=== PATIENT | male | born 1955 | race Caucasian/White ===

== ENCOUNTER 2018-01-06 17:44 | Emergency (ER) | payer BC ==
[2018-01-06] MEDS ORDERED: FENTANYL CITRATE INJ/PF 100 MCG/2 ML AMPUL IV ONE (18:26)
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
[2018-01-06] MEDS ORDERED: NORMAL SALINE 1000 ML 1,000 ML IV ONE (19:16)
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
[2018-01-06 19:50] LABS: ABSOLUTE BASOPHILS # (AUTO) 0.1 10^3/uL (0.0-0.2); ABSOLUTE EOSINOPHILS # (AUTO) 0.1 10^3/uL (0.0-0.6); ABSOLUTE LYMPHOCYTES (AUTO) 1.1 10^3/uL (0.5-4.7); ABSOLUTE NEUT (AUTO) 18.4 10^3/uL (1.7-8.2); BASOPHILS % (AUTO) 0.4 % (0-2); EOSINOPHILS % (AUTO) 0.6 % (0-6); HEMATOCRIT 40.7 % (37.9-51.0); HEMOGLOBIN 13.8 g/dL (13.5-17.0); LYMPHOCYTES % (AUTO) 5.5 % (13-45); MEAN CORPUSCULAR HEMOGLOBIN 31.7 pg (27.0-33.4); MEAN CORPUSCULAR HGB CONC 33.8 g/dL (32.0-36.0); MEAN CORPUSCULAR VOLUME 94 fl (80-97); MONOCYTES % (AUTO) 4.8 % (3-13); PLATELET COUNT 169 10^3/uL (150-450); RED BLOOD COUNT 4.34 10^6/uL (4.35-5.55); RED CELL DISTRIBUTION WIDTH 12.8 % (11.5-14.0); SEGMENTED NEUTROPHILS % (AUTO) 88.7 % (42-78); TOTAL CELLS COUNTED % (AUTO) 100 %; WHITE BLOOD COUNT 20.8 10^3/uL (4.0-10.5)
[2018-01-06 20:04] VITALS: BP 106/92
[2018-01-06 20:04] LABS: ANION GAP 13 (5-19); BLOOD UREA NITROGEN 16 mg/dL (7-20); CALCIUM 9.3 mg/dL (8.4-10.2); CARBON DIOXIDE 26 mmol/L (22-30); CHLORIDE 100 mmol/L (98-107); GLUCOSE 122 mg/dL (75-110); POTASSIUM 4.2 mmol/L (3.6-5.0); SODIUM 138.5 mmol/L (137-145)
== END 2018-01-06 20:15 | disposition short-term general hospital (02) ==
LOC: ER 17:44
DX: S32.811A Multiple fractures of pelvis with unstable disruption of pelvic ring, initial encounter for closed fracture (principal); W23.0XXA Caught, crushed, jammed, or pinched between moving objects, initial encounter; Y93.89 Activity, other specified; K57.30 Diverticulosis of large intestine without perforation or abscess without bleeding; R10.2 Pelvic and perineal pain; I10 Essential (primary) hypertension; I25.10 Atherosclerotic heart disease of native coronary artery without angina pectoris; Z95.5 Presence of coronary angioplasty implant and graft
CPT/HCPCS: 99291; 96361; 96374; 86900; 86901; 36415; 86850; 85025; 80048; 74177; J3010; J7030

== ENCOUNTER 2018-07-16 08:53 | Day surgery (SDC) | payer BC ==
[~2018-07-16 08:53] MED LIST: ASPIRIN 325 MG TABLET PO PRN; DIAZEPAM 5 MG TABLET PO PRN; DIPHENHYDRAMINE HCL 25 MG CAPSULE PO PRN; RADIAL COCKTAIL SYRINGE 10 ML IV PRN
[2018-07-16] MEDS ORDERED: HEPARIN SOD (PORCINE) 1,000 UNIT/ML 10 ML VIAL ONE (10:19)
[2018-07-16] MEDS ORDERED: MIDAZOLAM 2 MG/2 ML INJ ONE (10:19)
[2018-07-16] MEDS ORDERED: FENTANYL CITRATE INJ/PF 100 MCG/2 ML AMPUL ONE (10:19)
[2018-07-16] MEDS ORDERED: LIDOCAINE 1% INJ-PF (10 MG/ML) 30 ML SDV ONE (10:21)
[2018-07-16] MEDS ORDERED: HEPARIN SODIUM,PORCINE/NS/PF 2,000 UNIT/1,000 ML RTUINJ IV ONE (10:21)
[2018-07-16] MEDS ORDERED: NITROGLYCERIN/D5W 50 MG/250 ML RTUINJ IV ONE (11:16)
--- NOTE | 2018-07-16 11:50 | Operative Report ---
Operative Report DATE OF SURGERY: 07/16/18 PREOPERATIVE DIAGNOSIS: Recurrent angina pectoris POSTOPERATIVE DIAGNOSIS: Coronary artery disease OPERATION: Left heart catheterization coronary angiography left ventriculography intracoronary nitroglycerin instillation SURGEON: MARIBELL RAMIREZ ANESTHESIA: Moderate Sedation COMPLICATIONS: None PROCEDURE: After informed consent was obtained the patient was brought to the cardiac catheterization lab and the right wrist was prepared in usual sterile and draped manner. Hemodynamic access was gained using micropuncture technique and the patient was anticoagulated with heparin. An intra-arterial cocktail of verapamil and lidocaine was administered. Selective coronary angiography was performed with a [place] catheter. This was exchanged with pigtail catheter and left ventriculography was performed in standard SCHROEDER projection. The patient left the Cardiac Catheterization Lab in stable condition, with intact distal pulses and no chest pain or other complications from the procedure. Conscious sedation was initiated, monitored, and maintained during the procedure with the start time of 1059 and a completion time of 1127 for a total procedure time of 28. A total of 2.0 milligrams of Versed and 75 milligrams and fentanyl were used for conscious sedation. HEMODYNAMIC DATA: [Aortic pressure to beginning the case 120/64 left ventricular pressures 122/4 post ventriculography LV pressure is 103/50 there is no gradient across the aortic valve] CORONARY ANATOMY: [] ANGIOGRAPHY: [] VENTRICULOGRAPHY: Ventriculography is performed in the SCHROEDER projection and demonstrates [normal left ventricular function with an estimated ejection fraction by area length method of 85% regional wall motion is hyperdynamic there is no evidence of mitral regurgitation the ascending aortic root appears normal in dimension] . CORONARY ANGIOGRAPHY: [] LEFT MAIN: [Short but normal] LEFT ANTERIOR DESCENDING: [The ostial portion of the LAD has a 40 to 50% stenosis immediately proximal to the stent implantation in the proximal LAD the LAD stent itself is widely patent there is a 30% stenosis distal to the stent the first diagonal also has a stent which is widely patent without evidence of restenosis in this vessel the ongoing LAD is relatively small caliber with luminal irregularities but no critical or focal narrowings are seen] CIRCUMFLEX CORONARY: [The circumflex coronary artery has irregularities the obtuse marginal branches are small caliber but patent the small caliber size of vessels suggests concentric disease that is nonfocal] RIGHT CORONARY ARTERY: [Right coronary artery is a dominant vessel supplying the PDA this also has irregularities the PDA and several posterolateral branches are widely patent] IMPRESSION: 1. Hyperdynamic left ventricular systolic function 2. Patency of the LAD and diagonal stents as documented 3. Moderate ostial and mid LAD disease 4. No evidence of significant valvular heart disease Discussion: Recommendations at this time given the patient's symptoms would be medical therapy he should be cleared for general anesthesia and general surgery Maribell Ramirez please copy this Dr. Ravi Don
[2018-07-16 15:10] VITALS: BP 123/67
== END 2018-07-16 15:00 | disposition home or self-care (01) ==
LOC: CCL 08:53
PROVIDERS: ATTEND Internal Medicine Cardiovascular Disease
DX: I25.10 Atherosclerotic heart disease of native coronary artery without angina pectoris (principal); R01.1 Cardiac murmur, unspecified; R05 Cough; D40.0 Neoplasm of uncertain behavior of prostate; E78.00 Pure hypercholesterolemia, unspecified; I11.9 Hypertensive heart disease without heart failure; R91.1 Solitary pulmonary nodule; Z87.891 Personal history of nicotine dependence; Z79.899 Other long term (current) drug therapy; Z87.442 Personal history of urinary calculi; Z95.828 Presence of other vascular implants and grafts
CPT/HCPCS: 93458; J2250; J3010; J1644 ×2; J3490 ×5